=== PATIENT | female | born 1965 | race Caucasian/White ===

== ENCOUNTER 2017-01-11 16:45 | Emergency (ER) | payer OTHER ==
[~2017-01-11] VITALS: Ht 162.6 cm; Wt 73.9 kg
[~2017-01-11 16:45] MED LIST: CELEXA20 MG PO; CHLORPROMAZINE50 MG PO; CLARITIN10 M2 PO; LIPITOR10 MG PO; LORAZEPAM1 MG PO; MICROGESTIN FE1 EAC1 PO; MULTIVITAMINS1 EAC7; RISPERDAL1 MG PO
== END 2017-01-11 18:00 | disposition home or self-care (01) ==
LOC: ED 16:45
DX: Z00.01 Encounter for general adult medical examination with abnormal findings (principal); R78.0 Finding of alcohol in blood; Y90.3 Blood alcohol level of 60-79 mg/100 ml; E03.9 Hypothyroidism, unspecified; E78.00 Pure hypercholesterolemia, unspecified; D64.9 Anemia, unspecified; F20.9 Schizophrenia, unspecified; Z86.19 Personal history of other infectious and parasitic diseases; Z88.0 Allergy status to penicillin; Z79.899 Other long term (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
CPT/HCPCS: 80053; 80176; 81001; 85025; 99283; G0480

== ENCOUNTER 2017-01-31 01:53 | Emergency (ER) | payer OTHER ==
[~2017-01-31] VITALS: Ht 162.6 cm; Wt 68.0 kg
== END 2017-01-31 04:05 | disposition home or self-care (01) ==
LOC: ED 01:53
DX: Z00.8 Encounter for other general examination (principal); E03.9 Hypothyroidism, unspecified; E78.00 Pure hypercholesterolemia, unspecified; F20.9 Schizophrenia, unspecified; F17.200 Nicotine dependence, unspecified, uncomplicated; Z88.0 Allergy status to penicillin; Z79.899 Other long term (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
CPT/HCPCS: 36415; 80053; 80176; 81001; 84443; 84703; 85025; 99283; G0480

== ENCOUNTER 2017-01-31 18:13 | Emergency (ER) | payer OTHER ==
[~2017-01-31] VITALS: Ht 162.6 cm; Wt 68.0 kg
== END 2017-01-31 21:58 | disposition short-term general hospital (02) ==
LOC: ED 18:13
DX: Z00.8 Encounter for other general examination (principal); E03.9 Hypothyroidism, unspecified; E78.00 Pure hypercholesterolemia, unspecified; D64.9 Anemia, unspecified; F20.9 Schizophrenia, unspecified; F17.200 Nicotine dependence, unspecified, uncomplicated; Z88.0 Allergy status to penicillin; Z79.899 Other long term (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
CPT/HCPCS: 81001; 99285

== ENCOUNTER 2017-06-20 23:29 | Emergency (ER) | payer OTHER ==
[~2017-06-20] VITALS: Ht 162.6 cm; Wt 68.0 kg
== END 2017-06-21 00:43 | disposition home or self-care (01) ==
LOC: ED 23:29
DX: J98.8 Other specified respiratory disorders (principal); B34.9 Viral infection, unspecified; E03.9 Hypothyroidism, unspecified; E78.00 Pure hypercholesterolemia, unspecified; F17.200 Nicotine dependence, unspecified, uncomplicated; F20.9 Schizophrenia, unspecified; Z88.0 Allergy status to penicillin; Z79.899 Other long term (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
CPT/HCPCS: 99282

== ENCOUNTER 2017-06-23 19:20 | Emergency (ER) | payer OTHER ==
[~2017-06-23] VITALS: Ht 162.6 cm; Wt 63.5 kg
== END 2017-06-23 22:57 | disposition home or self-care (01) ==
LOC: ED 19:20
DX: J20.9 Acute bronchitis, unspecified (principal); F17.200 Nicotine dependence, unspecified, uncomplicated; Z86.19 Personal history of other infectious and parasitic diseases; Z79.899 Other long term (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
CPT/HCPCS: 99282

== ENCOUNTER 2017-06-24 20:05 | Emergency (ER) | payer OTHER ==
[~2017-06-24] VITALS: Ht 162.6 cm; Wt 63.5 kg
== END 2017-06-24 21:49 | disposition left against medical advice (07) ==
LOC: ED 20:05
DX: Z53.21 Procedure and treatment not carried out due to patient leaving prior to being seen by health care provider (principal)

== ENCOUNTER 2018-01-11 18:37 | Emergency (ER) | payer MEDICAID ==
[~2018-01-11] VITALS: Ht 162.6 cm; Wt 68.0 kg
[2018-01-11] MEDS ORDERED: BENZTROPINE MESY1 MG PO (19:21)
[2018-01-11] MEDS ORDERED: HALOPERIDOL5 MG PO (19:21)
[2018-01-11] MEDS ORDERED: TRAZODONE HCL50 MG PO (19:21)
== END 2018-01-11 19:42 | disposition home or self-care (01) ==
LOC: ED 18:37
DX: Z76.0 Encounter for issue of repeat prescription (principal); F17.200 Nicotine dependence, unspecified, uncomplicated; F31.9 Bipolar disorder, unspecified; Z88.0 Allergy status to penicillin; Z79.899 Other long term (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; Z59.0 Homelessness
CPT/HCPCS: 99281

== ENCOUNTER 2018-04-05 09:18 | Emergency (ER) | payer MEDICAID ==
[~2018-04-05] VITALS: Ht 162.6 cm; Wt 68.0 kg
[~2018-04-05 09:18] MED LIST changes: +BENZTROPINE MESY1 MG PO; +HALOPERIDOL5 MG PO; +TRAZODONE HCL50 MG PO
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
== END 2018-04-05 11:38 | disposition home or self-care (01) ==
LOC: ED 09:18
DX: S01.81XA Laceration without foreign body of other part of head, initial encounter (principal); W22.8XXA Striking against or struck by other objects, initial encounter; E03.9 Hypothyroidism, unspecified; E78.00 Pure hypercholesterolemia, unspecified; D64.9 Anemia, unspecified; F20.9 Schizophrenia, unspecified; F17.200 Nicotine dependence, unspecified, uncomplicated; Z88.0 Allergy status to penicillin; Z79.899 Other long term (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
CPT/HCPCS: 70450; 90471; 90715; 99283; 99406

== ENCOUNTER 2018-05-25 17:42 | Emergency (ER) | payer MEDICAID ==
[~2018-05-25] VITALS: Ht 162.6 cm; Wt 56.7 kg
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
== END 2018-05-25 19:55 | disposition home or self-care (01) ==
LOC: ED 17:42
DX: R51 Headache (principal); F20.9 Schizophrenia, unspecified; E03.9 Hypothyroidism, unspecified; E78.00 Pure hypercholesterolemia, unspecified; D64.9 Anemia, unspecified; F17.200 Nicotine dependence, unspecified, uncomplicated; Z88.0 Allergy status to penicillin; Z79.899 Other long term (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; Y04.8XXA Assault by other bodily force, initial encounter
CPT/HCPCS: 70450; 99284-25

== ENCOUNTER 2018-05-29 09:49 | Emergency (ER) | payer MEDICAID ==
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
== END 2018-05-29 09:54 | disposition left against medical advice (07) ==
LOC: ED 09:49
DX: Z53.21 Procedure and treatment not carried out due to patient leaving prior to being seen by health care provider (principal)

== ENCOUNTER 2018-05-30 13:12 | Emergency (ER) | payer MEDICAID ==
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
== END 2018-05-30 13:50 | disposition left against medical advice (07) ==
LOC: ED 13:12
DX: Z53.21 Procedure and treatment not carried out due to patient leaving prior to being seen by health care provider (principal)

== ENCOUNTER 2018-05-30 16:21 | Emergency (ER) | payer MEDICAID ==
[~2018-05-30] VITALS: Ht 162.6 cm; Wt 56.7 kg
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
== END 2018-05-30 19:06 | disposition home or self-care (01) ==
LOC: ED 16:21
DX: R51 Headache (principal); G89.29 Other chronic pain; E03.9 Hypothyroidism, unspecified; E78.00 Pure hypercholesterolemia, unspecified; D64.9 Anemia, unspecified; F20.9 Schizophrenia, unspecified; F17.200 Nicotine dependence, unspecified, uncomplicated; Z88.0 Allergy status to penicillin; Z79.899 Other long term (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
CPT/HCPCS: 99284

== ENCOUNTER 2018-06-05 21:58 | Emergency (ER) | payer MEDICAID ==
[~2018-06-05] VITALS: Ht 162.6 cm; Wt 56.7 kg
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
== END 2018-06-05 22:33 | disposition home or self-care (01) ==
LOC: ED 21:58
DX: S80.811A Abrasion, right lower leg, initial encounter (principal); Y04.8XXA Assault by other bodily force, initial encounter; F20.9 Schizophrenia, unspecified; Z88.0 Allergy status to penicillin; F17.200 Nicotine dependence, unspecified, uncomplicated; Z79.899 Other long term (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
CPT/HCPCS: 99283

== ENCOUNTER 2018-07-23 01:30 | Emergency (ER) | payer MEDICAID ==
[~2018-07-23] VITALS: Ht 162.6 cm; Wt 56.7 kg
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
== END 2018-07-23 02:06 | disposition home or self-care (01) ==
LOC: ED 01:30
DX: R51 Headache (principal); E03.9 Hypothyroidism, unspecified; E78.00 Pure hypercholesterolemia, unspecified; D64.9 Anemia, unspecified; F20.9 Schizophrenia, unspecified; F17.200 Nicotine dependence, unspecified, uncomplicated; Z88.0 Allergy status to penicillin; Z79.899 Other long term (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
CPT/HCPCS: 99283

== ENCOUNTER 2018-08-03 23:21 | Emergency (ER) | payer MEDICAID ==
[~2018-08-03] VITALS: Ht 162.6 cm; Wt 56.7 kg
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
== END 2018-08-03 23:50 | disposition home or self-care (01) ==
LOC: ED 23:21
DX: F29 Unspecified psychosis not due to a substance or known physiological condition (principal); E03.9 Hypothyroidism, unspecified; E78.00 Pure hypercholesterolemia, unspecified; D64.9 Anemia, unspecified; F20.9 Schizophrenia, unspecified; F17.200 Nicotine dependence, unspecified, uncomplicated; Z88.0 Allergy status to penicillin; Z79.899 Other long term (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
CPT/HCPCS: 99284

== ENCOUNTER 2018-08-08 21:46 | Emergency (ER) | payer MEDICAID ==
[~2018-08-08] VITALS: Ht 162.6 cm; Wt 56.7 kg
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
== END 2018-08-08 22:26 | disposition left against medical advice (07) ==
LOC: ED 21:46
DX: Z53.21 Procedure and treatment not carried out due to patient leaving prior to being seen by health care provider (principal)